=== PATIENT | female | born 1970 | race Caucasian/White ===

== ENCOUNTER 2016-11-19 16:28 | Emergency (ER) | payer MEDICAID ==
[~2016-11-19] VITALS: Ht 162.6 cm; Wt 60.8 kg
[2016-11-19 16:37] VITALS: BP 119/73
[2016-11-19] MEDS ORDERED: KETOROLAC 30 MG/ML VIAL IM ONE (17:55)
[2016-11-19] MEDS ORDERED: CYCLOBENZAPRINE 10 MG TAB PO ONE (18:35)
[2016-11-19] MEDS ORDERED: ONDANSETRON 4 MG ODT PO ONE (18:35)
[2016-11-19 18:59] VITALS: BP 111/64
== END 2016-11-19 19:00 | disposition home or self-care (01) ==
LOC: MED 16:28
DX: M54.9 Dorsalgia, unspecified (principal); R51 Headache
CPT/HCPCS: 81002; 81025; 93005; 96372; 99283; J1885; S0119